=== PATIENT | female | born 1970 | race Asian ===

== ENCOUNTER 2016-11-22 12:26 | Outpatient (CLI) | payer BC ==
--- NOTE | 2016-11-22 13:42 | Diagnostic Imaging Report ---
Indication: COUGH Technique: Two views of the chest Comparison: none Findings: There is a valve prosthesis. Lungs and pleural spaces are clear. The heart size is normal Impression: Negative
== END 2016-11-22 14:26 | disposition home or self-care (01) ==
LOC: RAD 12:26
DX: R05 Cough (principal); R06.02 Shortness of breath
CPT/HCPCS: 71020

== ENCOUNTER 2018-09-04 10:36 | Inpatient (IN) | payer BC ==
[~2018-09-04] VITALS: Ht 167.6 cm; Wt 80.3 kg
[2018-09-04 15:35] VITALS: BP 131/83
--- NOTE | 2018-09-04 15:50 | NUR ---
NURSE NOTES: Patient admitted as direct admit under Dr. Kenney. Patient is alert and oriented x4, no acute distress noted. Patient is reporting no pain at this time. VS assessed and stable. Patient does report some vaginal bleeding, reports she was on per menstrual cycle and is also on lovenox. Per patient, she is being admitted for heparin drip as bridge therapy for a scheduled surgery this Sunday. Per patient, she is scheduled to have a hysteroscopy this Sunday under Dr. Almonte. Oriented patient to room. Belongings listed inventoried. Side rails upx2, bed low and locked, call light in reach. Will continue to monitor.
[2018-09-04] MEDS ORDERED: ASPIRIN-LOW81 MG ORAL (16:06)
[2018-09-04] MEDS ORDERED: COUMADIN4 MG ORAL (16:06)
[2018-09-04] MEDS ORDERED: LOVENOX10 M2 SUBQ (16:06)
[2018-09-04] MEDS ORDERED: CRESTOR10 M2 ORAL (16:06)
[2018-09-04] MEDS ORDERED: METOPROLOL TART25 MG ORAL (16:06)
--- NOTE | 2018-09-04 17:28 | NUR ---
NURSE NOTES: Received admission orders from Dr. Kenney. Orders entered. Patient is to be on heparin drip, informed that patient must be in tele for heparin drip for indication: bridge therapy. Awaiting clarification on heparin drip prior to entering order. Informed Nirali in pharmacy.
--- NOTE | 2018-09-04 17:55 | NUR ---
NURSE NOTES: Received clarification on heparin drip order from Dr. Kenney. Order entered. Nirali in pharmacy notified. Informed Nirali in pharmacy that patient gave herself her lovenox injection at 0900 this morning.
--- NOTE | 2018-09-04 18:22 | NUR ---
NURSE NOTES: Started 20g RAC IV. Satya STAT labs. Called lab and requested to come parts picker tubes.
--- NOTE | 2018-09-04 18:30 | NUR ---
NURSE NOTES: Lab tubes picked up by tech and transported to lab.
[2018-09-04 18:31] LABS: EOSINOPHILS % (AUTO) 2.9 % (0.0-3.0); HEMATOCRIT 37.8 % (37.0-47.0); HEMOGLOBIN 12.5 G/DL (12.0-16.0); LYMPHOCYTES % (AUTO) 26.8 % (20.0-45.0); MEAN CORPUSCULAR VOLUME 95 FL (80-99); MONOCYTES % (AUTO) 7.3 % (1.0-10.0); NEUTROPHILS % (AUTO) 61.1 % (45.0-75.0); PLATELET COUNT 232 K/UL (150-450); RED BLOOD COUNT 3.99 M/UL (4.20-5.40); RED CELL DISTRIBUTION WIDTH 12.1 % (11.6-14.8)
--- NOTE | 2018-09-04 18:45 | NUR ---
NURSE NOTES: Received report from ANG Monterroso. Patient alert and oriented x4. IV intact. Patient does not display any signs of distress or SOB. Patient oriented to the room and the use of the call light. Bed in the lowest position and call light within reach.
--- NOTE | 2018-09-04 19:00 | NUR ---
HAND-OFF: Report given to Nat FRY. Patient transferred to telemetry room 204.
--- NOTE | 2018-09-04 19:27 | NUR ---
HAND-OFF: Report given to ANG Hastings.
--- NOTE | 2018-09-04 19:32 | NUR ---
CASE MANAGEMENT: REVIEW 48Y/F PRESENTED TO ED FROM HOME CC: UTERINE BLEEDING SI: UTERINE BLEEDING T 97.9 HR 64 RR 21 BP 131/83 SAT 99% ROOM AIR H/H 12.5/37.8 APTT 40 IS: HEPARIN IV X1 PATIENT ADMITTED TO TELEMETRY UNIT 09/04/2018 DCP: PATIENT IS FROM HOME
--- NOTE | 2018-09-04 19:45 | NUR ---
NURSE NOTES: Received patient from ANG Johns, stable condition, no acute distress, lying comfortably in bed. AOx4, able to make needs known. Denies pain at this time. Ambulatory, steady gait. Will continue to monitor and reassess.
[2018-09-04 20:00] VITALS: BP 114/64
[2018-09-04] MEDS ORDERED: Metoprolol Tartrate 12.5mg TAB ORAL SCH (21:00)
[2018-09-04] MEDS ORDERED: Heparin 25,000u/D5W 500ml 500 ML IV SCH ×2 (21:00)
[2018-09-04] MEDS ORDERED: Heparin 5000 units/ml inj IV SCH ×2 (21:00)
[2018-09-04] MEDS ORDERED: Atorvastatin 20mg tab ORAL SCH (21:00)
[2018-09-04] MEDS: Atorvastatin 20mg tab ORAL SCH (21:04)
[2018-09-04] MEDS: Metoprolol Tartrate 12.5mg TAB ORAL SCH (21:04)
[2018-09-05] VITALS: BP 105/56
[2018-09-05 03:39] LABS: ANION GAP 8 mmol/L (5-15); BLOOD UREA NITROGEN 19 mg/dL (7-18); CALCIUM 8.2 MG/DL (8.5-10.1); CARBON DIOXIDE 26 MMOL/L (21-32); CHLORIDE 110 MMOL/L (98-107); CREATININE 0.8 MG/DL (0.55-1.30); POTASSIUM 3.5 MMOL/L (3.5-5.1); SODIUM 143 MMOL/L (136-145)
[2018-09-05 03:41] LABS: BASOPHILS % (AUTO) 1.9 % (0.0-2.0); EOSINOPHILS % (AUTO) 4.2 % (0.0-3.0); HEMATOCRIT 35.8 % (37.0-47.0); LYMPHOCYTES % (AUTO) 33.9 % (20.0-45.0); MEAN CORPUSCULAR VOLUME 91 FL (80-99); MONOCYTES % (AUTO) 9.3 % (1.0-10.0); NEUTROPHILS % (AUTO) 50.7 % (45.0-75.0); PLATELET COUNT 198 K/UL (150-450); RED BLOOD COUNT 3.93 M/UL (4.20-5.40); RED CELL DISTRIBUTION WIDTH 12.3 % (11.6-14.8); WHITE BLOOD COUNT 4.9 K/UL (4.8-10.8)
[2018-09-05 04:00] VITALS: BP 104/61
[2018-09-05 04:00] LABS: INR 1.2 (0.9-1.1)
[2018-09-05 04:10] LABS: PARTIAL THROMBOPLASTIN TIME > 150 SEC (23-33)
--- NOTE | 2018-09-05 04:15 | History and Physical Report ---
DATE OF ADMISSION: 09/04/2018 REASON FOR ADMISSION: Uterine bleeding. HISTORY: This is a 48-year-old female who has had significant amount of uterine bleeding in the past requiring transfusions. The patient was directed to come in earlier due to need for the intervention by AUXILIARY ENGINEER. The patient had stopped her Coumadin due to concern of the issue with mitral valve replacement. The patient is admitted for heparin drip. The patient is otherwise comfortable without distress. PAST MEDICAL HISTORY: Notable for hyperglycemia, hypercholesterolemia, mitral valve replacement, and history of atrial fibrillation. MEDICATIONS: Reviewed. ALLERGIES: Reviewed. SOCIAL HISTORY: Nonsmoker and nondrinker. The patient is independent. PHYSICAL EXAMINATION: GENERAL: A well-developed female, otherwise comfortable. VITAL SIGNS: Stable. The patient is afebrile. Blood pressure 131/83, heart rate 64, respirations 21, and temperature 97.9. HEENT: Negative. NECK: Supple. No adenopathy. LUNGS: Clear and symmetric. CARDIAC: S1, S2. Regular rate and rhythm. ABDOMEN: Soft and nontender. EXTREMITIES: No edema. NEUROLOGIC: Grossly nonfocal. LABORATORY DATA: Reviewed. IMPRESSION: 1. Atrial fibrillation. 2. Mitral valve replacement. 3. Uterine bleeding. 4. Anemia. 5. History of transfusion. 6. Hypercholesterolemia. 7. Hyperglycemia. 8. Hold Coumadin and Lovenox and aspirin. 9. Start the patient on heparin drip to avoid any issues with mitral valve. 10. AUXILIARY ENGINEER to follow and recommend further. 11. Monitor levels and have pharmacy to dose the heparin and we will follow clinically and assist with postoperative care. Andrés Kenney M.D. DR: VANESSA JOB#: [id number] CC: DORA
[2018-09-05] MEDS ORDERED: Heparin 25,000u/D5W 500ml 500 ML IV SCH ×3 (05:15→19:15)
--- NOTE | 2018-09-05 07:23 | NUR ---
HAND-OFF: Report given to Sonya FRY, patient is awake lying semi-davis's, resting comfortably.Heparin drip @14units/kg/hr.In stable condition.
--- NOTE | 2018-09-05 07:45 | NUR ---
NURSE NOTES: Nurse report given by ANG Hastings. Patient's awake. She's comfortable, and in stable condition, no sign of distress or SOB. Denies pain. Breakfast at bedside. Bed at lowest position, break engaged, call light within reach. Heparin drips running at 14 units/kg/hr.
--- NOTE | 2018-09-05 07:52 | General Progress Note ---
Assessment/Plan Assessment/Plan: IMPRESSION: 1. Atrial fibrillation. 2. Mitral valve replacement. 3. Uterine bleeding. 4. Anemia. 5. History of transfusion. 6. Hypercholesterolemia. 7. Hyperglycemia. PLAN GROUND HAND informed hold heparin 6 hours prior to procedure otherwise same impression, plan, and exam edited and reviewed in detail care discussed with RN Subjective Allergies: Coded Allergies: VANCOMYCIN (Verified Allergy, Unknown, 09/04/18) Subjective care noted and reviewed Objective Last 24 Hour Vital Signs Date Time Temp Pulse Resp B/P (MAP) Pulse Ox O2 Delivery O2 Flow Rate FiO2 09/05/18 04:00 56 09/05/18 04:00 98.3 59 18 104/61 (75) 96 09/05/18 00:00 61 09/05/18 00:00 98.3 63 18 105/56 (72) 96 09/04/18 21:04 65 114/64 09/04/18 21:00 Room Air 09/04/18 20:00 66 09/04/18 20:00 98.3 65 18 114/64 (81) 96 09/04/18 15:43 Room Air 09/04/18 15:35 97.9 64 21 131/83 (99) 99 Intake and Output 09/04/18 09/05/18 18:59 06:59 Intake Total 300 ml 446.194 ml Balance 300 ml 446.194 ml Intake Oral 300 ml 240 ml IV Total 206.194 ml # Voids 1 3 # Bowel Movements 1 Laboratory Tests 09/04/18 18:15: White Blood Count 5.0, Red Blood Count 3.99L, Hemoglobin 12.5, Hematocrit 37.8, Mean Corpuscular Volume 95, Mean Corpuscular Hemoglobin 31.3H, Mean Corpuscular Hemoglobin Concent 33.1, Red Cell Distribution Width 12.1, Platelet Count 232, Mean Platelet Volume 7.9, Neutrophils (%) (Auto) 61.1, Lymphocytes (%) (Auto) 26.8, Monocytes (%) (Auto) 7.3, Eosinophils (%) (Auto) 2.9, Basophils (%) (Auto ) 2.0, Activated Partial Thromboplast Time 40H 09/05/18 03:21: White Blood Count 4.9, Red Blood Count 3.93L, Hemoglobin 12.0, Hematocrit 35.8L , Mean Corpuscular Volume 91, Mean Corpuscular Hemoglobin 30.4, Mean Corpuscular Hemoglobin Concent 33.4, Red Cell Distribution Width 12.3, Platelet Count 198, Mean Platelet Volume 7.1, Neutrophils (%) (Auto) 50.7, Lymphocytes (% ) (Auto) 33.9, Monocytes (%) (Auto) 9.3, Eosinophils (%) (Auto) 4.2H, Basophils (%) (Auto) 1.9, Activated Partial Thromboplast Time > 150*H, Prothrombin Time 12.7H, Prothromb Time International Ratio 1.2H, Sodium Level 143, Potassium Level 3.5, Chloride Level 110H, Carbon Dioxide Level 26, Anion Gap 8, Blood Urea Nitrogen 19H, Creatinine 0.8, Estimat Glomerular Filtration Rate > 60, Glucose Level 116H, Calcium Level 8.2L Height (Feet): 5 Height (Inches): 7.00 Weight (Pounds): 170 Objective GENERAL: A well-developed female, otherwise comfortable. HEENT: Negative. NECK: Supple. No adenopathy. LUNGS: Clear and symmetric. CARDIAC: S1, S2. Regular rate and rhythm. ABDOMEN: Soft and nontender. EXTREMITIES: No edema. NEUROLOGIC: Grossly nonfocal. Andrés Kenney MD Sep 05, 2018 07:52
[2018-09-05 07:59] VITALS: BP 121/77
[2018-09-05] MEDS: Metoprolol Tartrate 12.5mg TAB ORAL SCH ×2 (08:33→22:44)
--- NOTE | 2018-09-05 09:52 | NUR ---
CASE MANAGEMENT: REVIEW 09/05/2018 SI: UTERINE BLEEDING T 98.3 HR 56 RR 18 B/P 104/61 SATS 96% ON RA CL 110 BUN 19 GLU 116 CA 8.2 IS: LOPRESSOR PO Q12H LIPITOR PO QHS HEPARIN DRIP PER PARAMETER TELE STATUS DCP: PATIENT IS FROM HOME PLAN OF CARE: RISK PROFESSIONAL CONSULT Addendum: 09/05/18 at 1552 by Kirstie Holley CM INTERQUAL MET
--- NOTE | 2018-09-05 10:09 | NUR ---
*-* INSURANCE *-* ALL CLINICALS AND REVIEWS HAVE BEEN FAXED TO: [facility] REF# [id number] F:[phone]
[2018-09-05 12:00] VITALS: BP 115/68
--- NOTE | 2018-09-05 14:00 | NUR ---
NURSE NOTES: Called Dr. Almonte's office and spoke with nurse. Nurse said surgery tomorrow is hysteroscopy with d and c and polypectomy. Witnessed patient signed consent after verifying Dr. Almonte spoke with her about the risks and benefits of the procedures. Will let Dr. Almonte put in order for the consent in the computer
--- NOTE | 2018-09-05 15:22 | Anethesia Preoperative Eval ---
Anesthesia Pre-op PMH/ROS General Date of Evaluation: Sep 05, 2018 Time of Evaluation: 15:18 Anesthesiologist: Ranjit ASA Score: ASA 2 Mallampati Score Class I : Soft palate, uvula, fauces, pillars visible Class II: Soft palate, uvula, fauces visible Class III: Soft palate, base of uvula visible Class IV: Only hard plate visible Mallampati Classification: Class II Surgeon: Davida Diagnosis: Uterine polip Surgical Procedure: D&C Hysteroscopy Anesthesia History: none Family History: no anesthesia problems Allergies: Coded Allergies: VANCOMYCIN (Verified Allergy, Unknown, 09/04/18) Medications: see eMAR Patient NPO?: Yes Past Medical History Cardiovascular: Reports: HTN - mild Pulmonary: Denies: asthma, COPD, JENA, other Gastrointestinal/Genitourinary: Reports: GERD; Denies: CRI, ESRD, other Neurologic/Psychiatric: Denies: dementia, CVA, depression/anxiety, TIA, other Endocrine: Denies: DM, hypothyroidism, steroids, other HEENT: Denies: cataract (L), cataract (R), glaucoma, [place] (L), [place] (R), other Hematology/Immune: Reports: anemia - mild; Denies: DVT, bleeding disorder, other Musculoskeletal/Integumentary: Denies: OA, RA, DJD, DDD, edema, other PMH Narrative: as above PSxH Narrative: Mitral valve replacement, L elbow ORIF, Oophorectomy Anesthesia Pre-op Phys. Exam Physician Exam Last Vital Signs Date Time Temp Pulse Resp B/P (MAP) Pulse Ox O2 Delivery O2 Flow Rate FiO2 09/05/18 12:00 98.6 63 20 115/68 (84) 97 09/05/18 09:00 Room Air Constitutional: NAD Neurologic: CN 2-12 intact Cardiovascular: RRR, no M/R/G Respiratory: CTA Gastrointestinal: S/NT/ND Airway Exam Mallampati Score: Class II MO: full Neck: flexible ROM: full Teeth: intact Dentures: no upper, no lower Anesthesia Pre-op A/P Labs Hematology Test 09/04/18 18:15 09/05/18 03:21 White Blood Count 5.0 K/UL (4.8-10.8) 4.9 K/UL (4.8-10.8) Red Blood Count 3.99 M/UL (4.20-5.40) L 3.93 M/UL (4.20-5.40) L Hemoglobin 12.5 G/DL (12.0-16.0) 12.0 G/DL (12.0-16.0) Hematocrit 37.8 % (37.0-47.0) 35.8 % (37.0-47.0) L Mean Corpuscular Volume 95 FL (80-99) 91 FL (80-99) Mean Corpuscular Hemoglobin 31.3 PG (27.0-31.0) H 30.4 PG (27.0-31.0) Mean Corpuscular Hemoglobin Concent 33.1 G/DL (32.0-36.0) 33.4 G/DL (32.0-36.0) Red Cell Distribution Width 12.1 % (11.6-14.8) 12.3 % (11.6-14.8) Platelet Count 232 K/UL (150-450) 198 K/UL (150-450) Mean Platelet Volume 7.9 FL (6.5-10.1) 7.1 FL (6.5-10.1) Neutrophils (%) (Auto) 61.1 % (45.0-75.0) 50.7 % (45.0-75.0) Lymphocytes (%) (Auto) 26.8 % (20.0-45.0) 33.9 % (20.0-45.0) Monocytes (%) (Auto) 7.3 % (1.0-10.0) 9.3 % (1.0-10.0) Eosinophils (%) (Auto) 2.9 % (0.0-3.0) 4.2 % (0.0-3.0) H Basophils (%) (Auto) 2.0 % (0.0-2.0) 1.9 % (0.0-2.0) Coagulation Test 09/04/18 18:15 09/05/18 03:21 09/05/18 11:30 Activated Partial Thromboplast Time 40 SEC (23-33) H > 150 SEC (23-33) *H 100 SEC (23-33) H Prothrombin Time 12.7 SEC (9.30-11.50) H Prothromb Time International Ratio 1.2 (0.9-1.1) H Chemistry Test 09/05/18 03:21 Sodium Level 143 MMOL/L (136-145) Potassium Level 3.5 MMOL/L (3.5-5.1) Chloride Level 110 MMOL/L (98-107) H Carbon Dioxide Level 26 MMOL/L (21-32) Anion Gap 8 mmol/L (5-15) Blood Urea Nitrogen 19 mg/dL (7-18) H Creatinine 0.8 MG/DL (0.55-1.30) Estimat Glomerular Filtration Rate > 60 mL/min (>60) Glucose Level 116 MG/DL (74-106) H Calcium Level 8.2 MG/DL (8.5-10.1) L Risk Assessment & Plan Assessment: ASA 2 Plan: GA with LMA Status Change Before Surgery: No Pre-Antibiotics Drug: as scheduled Toby Church MD Sep 05, 2018 15:22
[2018-09-05 16:00] VITALS: BP 115/71
[2018-09-05] MEDS ORDERED: Heparin 5000 units/ml inj IV SCH (19:15)
--- NOTE | 2018-09-05 19:19 | NUR ---
HAND-OFF: Report given to Darling FRY. Patient's in stable condition. Plan of care endorsed.
--- NOTE | 2018-09-05 19:30 | NUR ---
NURSE NOTES: Received report from Sonya FRY, patient in stable condition, on hep drip 12u/kg/hr. Lying in bed comfortably, Right AC G20 flushed patent no s/sx of infiltration, extravasation, phlebitis. Ambulatory, denies pain at this time
[2018-09-05 20:00] VITALS: BP 116/63
[2018-09-05] MEDS: Atorvastatin 20mg tab ORAL SCH (20:50)
--- NOTE | 2018-09-05 21:49 | NUR ---
NURSE NOTES: Called Dr. Kenney regarding possible parameters for patient's Metoprolol medication since her heart rate went down to the 40s yesterday night after administration of 12.5 mg Metoprolol PO medication. Awaiting callback.
--- NOTE | 2018-09-05 22:36 | NUR ---
NURSE NOTES: Received order from Dr. Kenney to hold 2100 12.5 mg Lopressor PO dose for tonight. Noted and carried out.
[2018-09-06] VITALS (14 sets, daily range): BP systolic 108–123; BP diastolic 58–73
--- NOTE | 2018-09-06 | NUR ---
NURSE NOTES: Heparin drip held at this time in preparation for procedure in AM, 09/06/18.
--- NOTE | 2018-09-06 05:30 | NUR ---
NURSE NOTES: Called Dr. Almonte regarding consent order for patient. Awaiting callback.
--- NOTE | 2018-09-06 05:37 | NUR ---
NURSE NOTES: Received order from Dr. Almonte. Noted and carried out.
[2018-09-06 06:11] LABS: BASOPHILS % (AUTO) 2.7 % (0.0-2.0); EOSINOPHILS % (AUTO) 3.6 % (0.0-3.0); HEMATOCRIT 37.8 % (37.0-47.0); HEMOGLOBIN 12.5 G/DL (12.0-16.0); LYMPHOCYTES % (AUTO) 29.4 % (20.0-45.0); MEAN CORPUSCULAR VOLUME 92 FL (80-99); NEUTROPHILS % (AUTO) 56.2 % (45.0-75.0); PLATELET COUNT 209 K/UL (150-450); RED BLOOD COUNT 4.12 M/UL (4.20-5.40); RED CELL DISTRIBUTION WIDTH 12.3 % (11.6-14.8); WHITE BLOOD COUNT 5.1 K/UL (4.8-10.8)
[2018-09-06 06:34] LABS: ALANINE AMINOTRANSFERASE 55 U/L (12-78); ALBUMIN 3.4 G/DL (3.4-5.0); ALBUMIN/GLOBULIN RATIO 1.2 (1.0-2.7); ALKALINE PHOSPHATASE 35 U/L (46-116); ANION GAP 10 mmol/L (5-15); ASPARTATE AMINO TRANSFERASE 42 U/L (15-37); BILIRUBIN,TOTAL 1.3 MG/DL (0.2-1.0); BLOOD UREA NITROGEN 13 mg/dL (7-18); CALCIUM 8.5 MG/DL (8.5-10.1); CARBON DIOXIDE 24 MMOL/L (21-32); CHLORIDE 110 MMOL/L (98-107); CREATININE 0.8 MG/DL (0.55-1.30); POTASSIUM 3.9 MMOL/L (3.5-5.1); SODIUM 144 MMOL/L (136-145)
[2018-09-06 06:45] LABS: BILIRUBIN,DIRECT 0.2 MG/DL (0.0-0.3)
--- NOTE | 2018-09-06 07:02 | NUR ---
NURSE NOTES: Patient is taken off the unit for surgery.
[2018-09-06] MEDS ORDERED: fentaNYL 100 mcg/2 mL IV ONE (07:09)
[2018-09-06] MEDS ORDERED: Succinylcholine 20mg/ml 10ml vial ONE (07:09)
[2018-09-06] MEDS ORDERED: Midazolam 2mg/2ml Inj ONE (07:09)
[2018-09-06] MEDS ORDERED: Propofol 200mg/20ml IV ONE (07:09)
[2018-09-06] MEDS ORDERED: Sterile Water Irrig 1000ml IRRIG ONE (07:30)
[2018-09-06] MEDS ORDERED: Lidocaine 1% MPF 10mg/ml 5ml ONE (07:30)
[2018-09-06] MEDS ORDERED: LR 1000ml ONE ×2 (07:30→11:00)
[2018-09-06] MEDS ORDERED: NS Irrig 1000ml ONE (07:30)
[2018-09-06] MEDS ORDERED: Metoclopramide 10mg/2ml Inj ONE (07:30)
--- NOTE | 2018-09-06 07:50 | Pre-Procedure Note/Attestation ---
Pre-Procedure Note/Attestation Complete Prior to Procedure Planned Procedure: not applicable Procedure Narrative: Hysteroscopy, polypectomy, dilation and curettage Indications for Procedure Pre-Operative Diagnosis: Abnormal uterine bleeding with polyp noted on ultrasound Attestation I attest that I discussed the nature of the procedure; its benefits; risks and complications; and alternatives (and the risks and benefits of such alternatives ), prior to the procedure, with the patient (or the patient's legal risk control representative). I attest that, if there was a reasonable possibility of needing a blood transfusion, the patient (or the patient's legal risk control representative) was given the [facility] standardized written summary, pursuant to the [place] Blood Safety Act ([place] Health and Safety Code # 1645, as amended). I attest that I re-evaluated the patient just prior to the surgery and that there has been no change in the patient's H&P, except as documented below: None Elvira Almonte M.D. Sep 06, 2018 07:50
--- NOTE | 2018-09-06 07:53 | NUR ---
HAND-OFF: Report given to ANG Chino. Patient is currently off the unit.
--- NOTE | 2018-09-06 07:54 | NUR ---
NURSE NOTES: Received report from Darling FRY. Patient is currently off the floor. Will continue plan of care when patient come back after surgery.
[2018-09-06] MEDS ORDERED: Hydromorphone 0.5mg/0.5ml inj IVP PRN (08:15)
[2018-09-06] MEDS ORDERED: Silver Nitrate Stick TOPIC ONE ×3 (08:17→08:21)
--- NOTE | 2018-09-06 08:18 | Anethesia Preoperative Eval ---
Anesthesia Pre-op PMH/ROS General Date of Evaluation: Sep 06, 2018 Time of Evaluation: 07:15 Anesthesiologist: Kristy Sheriff CRNA ASA Score: ASA 3 Mallampati Score Class I : Soft palate, uvula, fauces, pillars visible Class II: Soft palate, uvula, fauces visible Class III: Soft palate, base of uvula visible Class IV: Only hard plate visible Mallampati Classification: Class II Surgeon: Gage Diagnosis: Uterine bleeding Surgical Procedure: Hysteroscopy, D & C. piolypectomy Anesthesia History: none Family History: no anesthesia problems Allergies: Coded Allergies: VANCOMYCIN (Verified Allergy, Unknown, 09/04/18) Medications: see eMAR Patient NPO?: Yes NPO Date: Sep 06, 2018 NPO Time: 0000 Past Medical History Cardiovascular: Reports: HTN, valve dz - s/p mitral valve replacement 3 years ago, other - hypercholesterlemia; Denies: CAD, [place], arrhythmia Pulmonary: Denies: asthma, COPD, JENA, other Gastrointestinal/Genitourinary: Reports: other - uterine bleeding; Denies: GERD, CRI, ESRD Neurologic/Psychiatric: Denies: dementia, CVA, depression/anxiety, TIA, other Endocrine: Denies: DM, hypothyroidism, steroids, other Hematology/Immune: Reports: anemia, other - anticoaglation therapy for mitral valve Musculoskeletal/Integumentary: Reports: OA, other - sciatica, RIGHT knee umbness, tingling, pain PMH Narrative: as noted above PSxH Narrative: LEFT elbow, mitral valve replacement Anesthesia Pre-op Phys. Exam Physician Exam Last Vital Signs Date Time Temp Pulse Resp B/P (MAP) Pulse Ox O2 Delivery O2 Flow Rate FiO2 09/06/18 04:00 51 09/06/18 04:00 98.1 20 121/66 (84) 98 09/05/18 21:00 Room Air Constitutional: NAD, other - bruising Neurologic: other - alert and oriented Cardiovascular: RRR Respiratory: CTA Gastrointestinal: S/NT/ND Airway Exam Mallampati Score: Class II MO: full Neck: FROM TMD: > 3 FB ROM: full Teeth: intact Dentures: no upper, no lower Anesthesia Pre-op A/P Labs Hematology Test 09/06/18 05:50 White Blood Count 5.1 K/UL (4.8-10.8) Red Blood Count 4.12 M/UL (4.20-5.40) L Hemoglobin 12.5 G/DL (12.0-16.0) Hematocrit 37.8 % (37.0-47.0) Mean Corpuscular Volume 92 FL (80-99) Mean Corpuscular Hemoglobin 30.5 PG (27.0-31.0) Mean Corpuscular Hemoglobin Concent 33.1 G/DL (32.0-36.0) Red Cell Distribution Width 12.3 % (11.6-14.8) Platelet Count 209 K/UL (150-450) Mean Platelet Volume 7.6 FL (6.5-10.1) Neutrophils (%) (Auto) 56.2 % (45.0-75.0) Lymphocytes (%) (Auto) 29.4 % (20.0-45.0) Monocytes (%) (Auto) 8.0 % (1.0-10.0) Eosinophils (%) (Auto) 3.6 % (0.0-3.0) H Basophils (%) (Auto) 2.7 % (0.0-2.0) H Coagulation Test 09/05/18 11:30 09/05/18 18:05 09/06/18 05:50 Activated Partial Thromboplast Time 100 SEC (23-33) H 61 SEC (23-33) H 28 SEC (23-33) Chemistry Test 09/06/18 05:50 Sodium Level 144 MMOL/L (136-145) Potassium Level 3.9 MMOL/L (3.5-5.1) Chloride Level 110 MMOL/L (98-107) H Carbon Dioxide Level 24 MMOL/L (21-32) Anion Gap 10 mmol/L (5-15) Blood Urea Nitrogen 13 mg/dL (7-18) Creatinine 0.8 MG/DL (0.55-1.30) Estimat Glomerular Filtration Rate > 60 mL/min (>60) Glucose Level 98 MG/DL (74-106) Calcium Level 8.5 MG/DL (8.5-10.1) Total Bilirubin 1.3 MG/DL (0.2-1.0) H Direct Bilirubin 0.2 MG/DL (0.0-0.3) Aspartate Amino Transf (AST/SGOT) 42 U/L (15-37) H Alanine Aminotransferase (ALT/SGPT) 55 U/L (12-78) Alkaline Phosphatase 35 U/L (46-116) L Total Protein 6.3 G/DL (6.4-8.2) L Albumin 3.4 G/DL (3.4-5.0) Globulin 2.9 g/dL Albumin/Globulin Ratio 1.2 (1.0-2.7) Urine Test negative 08/29/18 Studies Pre-op Studies: EKG - NSR, CXR - NAD, valve present, echo - EF 60-65%; pulmonic insufficiency Risk Assessment & Plan Assessment: ASA 3, ok to proceed Plan: GA with LMA Status Change Before Surgery: No Pre-Antibiotics Drug: cefazolin 2 gm IV Given Within 1 Hr of Incision: Yes Kristy Sheriff CRNA Sep 06, 2018 08:18
--- NOTE | 2018-09-06 08:42 | Immediate Post-Op Evaluation ---
Immediate Post-Op Evalulation Immediate Post-Op Evalulation Procedure: Hysteroscopy, D & C, polypectomy Date of Evaluation: Sep 06, 2018 Time of Evaluation: 08:41 IV Fluids: LR 500 ml Estimated Blood Loss: minimal Blood Pressure Systolic: 120 Blood Pressure Diastolic: 70 Pulse Rate: 75 Respiratory Rate: 12 O2 Sat by Pulse Oximetry: 99 Temperature (Fahrenheit): 96.5 Pain Score (1-10): 0 Nausea: No Vomiting: No Complications none Patient Status: awake, reacts, patent, extubated Hydration Status: adequate Drug: cefazolin 2 gm IV Given Within 1 Hr of Incision: Yes Time Given: 07:53 Kristy Sheriff CRNA Sep 06, 2018 08:42
[2018-09-06] MEDS: Metoprolol Tartrate 12.5mg TAB ORAL SCH ×2 (09:30→21:10)
--- NOTE | 2018-09-06 10:23 | NUR ---
NURSE NOTES: Per Dr. Kenney's order patient will start Heparin drip at 07:00 PM. RN spoke with pharmacy. RN will double check the rate with doctor before start the heparin Drip.
[2018-09-06] MEDS ORDERED: NS Irrig 4000ml IRRIG ONE (11:00)
--- NOTE | 2018-09-06 11:27 | NUR ---
CASE MANAGEMENT: REVIEW 09/05/2018 SI: UTERINE BLEEDING T 98 HR 56 RR 20 B/P 111/71 SATS 96% ON RA CL 110 TBILI 1.3 AST 42 ALP 35 IS: LOPRESSOR PO Q12H LIPITOR PO QHS HEPARIN DRIP PER PARAMETER TELE STATUS DCP: PATIENT IS FROM HOME PLAN OF CARE: Procedure Narrative: Hysteroscopy, polypectomy, dilation and curettage
--- NOTE | 2018-09-06 13:02 | Brief Operative Note ---
Immediate Post Operative Note Operative Note Chief Complaint: Heavy vaginal bleeding Pre-op Diagnosis: Abnormal uterine bleeding with polyp noted on ultrasound Procedure: Hysteroscopy, polypectomy, dilation and curettage Post-op Diagnosis: Endometrial polyps Surgeon: Elvira Almonte MD Anesthesiologist: Kristy Mcdonald CRNA Anesthesia: general Specimen: yes - Endometrial polyp, endometrial curetting Complications: none Condition: stable Fluids: Crystalloid Estimated Blood Loss: minimal Drains: none - Bladder drained prior to procedure Implant(s) used?: No Elvira Almonte M.D. Sep 06, 2018 13:02
--- NOTE | 2018-09-06 13:05 | Operative Note - PDOC ---
Operative Note Operative Note Date of Operation/Procedure: Sep 06, 2018 Chief Complaint: Heavy vaginal bleeding Pre-op Diagnosis: Abnormal uterine bleeding with polyp noted on ultrasound Procedure: Hysteroscopy, polypectomy, dilation and curettage Post-op Diagnosis: Endometrial polyps Post-op Diagnosis: same as pre-op Operative Findings: consistent w/pre-op dx studies Surgeon: Elvira Almonte MD Anesthesiologist: Kristy Mcdonald CRNA Anesthesia: general Specimen: yes - Endometrial polyp, endometrial curetting Complications: none Condition: stable Fluids: Crystalloid Estimated Blood Loss: minimal Drains: none - Bladder drained prior to procedure Implant(s) used?: No Indications for Procedure Heavy vaginal bleeding, patient on anticoagulation Description of Procedure The R/B/A of the procedure were discussed with the patient and informed consent was obtained. The patient was pre-admitted for heparin drip for pre-operative anticoagulation bridging in the setting of prosthetic mitral valve. Polyps noted on posterior wall of endometrium on the right and posteriorly in the lower uterine segment. Elvira Almonte M.D. Sep 06, 2018 13:05
--- NOTE | 2018-09-06 15:27 | NUR ---
*-* INSURANCE *-* ALL CLINICALS AND REVIEWS HAVE BEEN FAXED TO: [facility] REF# [id number] F:[phone]
[2018-09-06] MEDS ORDERED: Warfarin Sodium 5mg ORAL ONE (18:00)
[2018-09-06] MEDS ORDERED: Heparin 25,000u/D5W 500ml 500 ML IV SCH (19:00)
--- NOTE | 2018-09-06 19:31 | NUR ---
HAND-OFF: Report given to ANG Nash.
--- NOTE | 2018-09-06 19:32 | NUR ---
NURSE NOTES: Got report from Sybil FRY. Pt in stable condition. denies any pain. No s/s of distress or discomfort noted. Pt resting in bed comfortably. Bed in low and locked position, call light within reach, bedside table within reach. Continue to monitor.
--- NOTE | 2018-09-06 21:09 | Pulmonology Progress Note ---
Assessment/Plan Assessment/Plan Pulmonary Progress Note Assessment/Plan: IMPRESSION: 1. Atrial fibrillation. 2. Mitral valve replacement. 3. Uterine bleeding. 4. Anemia. 5. History of transfusion. 6. Hypercholesterolemia. 7. Hyperglycemia. PLAN Coumadin/Heparin per pharmacy otherwise same impression, plan, and exam edited and reviewed in detail care discussed with RN Subjective Allergies: Coded Allergies: VANCOMYCIN (Verified Allergy, Unknown, 09/04/18) Subjective care noted and reviewed Objective Vital Signs Noted Laboratory Tests 09/04/18 18:15: White Blood Count 5.0, Red Blood Count 3.99L, Hemoglobin 12.5, Hematocrit 37.8, Mean Corpuscular Volume 95, Mean Corpuscular Hemoglobin 31.3H, Mean Corpuscular Hemoglobin Concent 33.1, Red Cell Distribution Width 12.1, Platelet Count 232, Mean Platelet Volume 7.9, Neutrophils (%) (Auto) 61.1, Lymphocytes (%) (Auto) 26.8, Monocytes (%) (Auto) 7.3, Eosinophils (%) (Auto) 2.9, Basophils (%) (Auto ) 2.0, Activated Partial Thromboplast Time 40H 09/05/18 03:21: White Blood Count 4.9, Red Blood Count 3.93L, Hemoglobin 12.0, Hematocrit 35.8L , Mean Corpuscular Volume 91, Mean Corpuscular Hemoglobin 30.4, Mean Corpuscular Hemoglobin Concent 33.4, Red Cell Distribution Width 12.3, Platelet Count 198, Mean Platelet Volume 7.1, Neutrophils (%) (Auto) 50.7, Lymphocytes (% ) (Auto) 33.9, Monocytes (%) (Auto) 9.3, Eosinophils (%) (Auto) 4.2H, Basophils (%) (Auto) 1.9, Activated Partial Thromboplast Time > 150*H, Prothrombin Time 12.7H, Prothromb Time International Ratio 1.2H, Sodium Level 143, Potassium Level 3.5, Chloride Level 110H, Carbon Dioxide Level 26, Anion Gap 8, Blood Urea Nitrogen 19H, Creatinine 0.8, Estimat Glomerular Filtration Rate > 60, Glucose Level 116H, Calcium Level 8.2L Height (Feet): 5 Height (Inches): 7.00 Weight (Pounds): 170 Objective GENERAL: A well-developed female, otherwise comfortable. HEENT: Negative. NECK: Supple. No adenopathy. LUNGS: Clear and symmetric. CARDIAC: S1, S2. Regular rate and rhythm. ABDOMEN: Soft and nontender. EXTREMITIES: No edema. NEUROLOGIC: Grossly nonfocal. Subjective ROS Limited/Unobtainable: No Allergies: Coded Allergies: VANCOMYCIN (Verified Allergy, Unknown, 09/04/18) Objective Last 24 Hour Vital Signs Date Time Temp Pulse Resp B/P (MAP) Pulse Ox O2 Delivery O2 Flow Rate FiO2 09/06/18 16:00 67 09/06/18 16:00 97.9 63 20 108/58 (75) 98 09/06/18 12:00 53 09/06/18 11:58 97.8 54 20 115/73 (87) 97 09/06/18 10:00 55 09/06/18 09:37 63 15 119/62 96 Room Air 09/06/18 09:30 56 111/71 09/06/18 09:30 98.0 56 20 111/71 (84) 96 09/06/18 09:15 57 11 117/65 97 Room Air 09/06/18 09:01 64 12 113/61 98 Room Air 09/06/18 09:00 Room Air 09/06/18 08:45 58 10 111/61 100 Simple Mask 6 09/06/18 08:42 75 12 99 09/06/18 08:40 59 19 115/63 100 Simple Mask 6 09/06/18 08:35 64 11 118/68 100 Simple Mask 6 09/06/18 08:32 96.5 66 20 120/70 100 Simple Mask 6 09/06/18 04:00 51 09/06/18 04:00 98.1 55 20 121/66 (84) 98 09/06/18 00:00 98.0 59 20 123/67 (85) 97 09/06/18 00:00 53 09/05/18 22:44 63 116/63 Intake and Output 09/05/18 09/06/18 19:00 07:00 Intake Total 480.455 ml 81.326 ml Balance 480.455 ml 81.326 ml Intake Oral 280 ml IV Total 200.455 ml 81.326 ml # Voids 3 3 Laboratory Tests 09/06/18 05:50: White Blood Count 5.1, Red Blood Count 4.12L, Hemoglobin 12.5, Hematocrit 37.8, Mean Corpuscular Volume 92, Mean Corpuscular Hemoglobin 30.5, Mean Corpuscular Hemoglobin Concent 33.1, Red Cell Distribution Width 12.3, Platelet Count 209, Mean Platelet Volume 7.6, Neutrophils (%) (Auto) 56.2, Lymphocytes (%) (Auto) 29.4, Monocytes (%) (Auto) 8.0, Eosinophils (%) (Auto) 3.6H, Basophils (%) (Auto ) 2.7H, Activated Partial Thromboplast Time 28, Sodium Level 144, Potassium Level 3.9, Chloride Level 110H, Carbon Dioxide Level 24, Anion Gap 10, Blood Urea Nitrogen 13, Creatinine 0.8, Estimat Glomerular Filtration Rate > 60, Glucose Level 98, Calcium Level 8.5, Total Bilirubin 1.3H, Direct Bilirubin 0.2 , Aspartate Amino Transf (AST/SGOT) 42H, Alanine Aminotransferase (ALT/SGPT) 55 , Alkaline Phosphatase 35L, Total Protein 6.3L, Albumin 3.4, Globulin 2.9, Albumin/Globulin Ratio 1.2 Current Medications Medications (Trade) Dose Ordered Sig/Aida Route PRN Reason Start Time Stop Time Status Last Admin Dose Admin Acetaminophen (Tylenol) 650 mg Q4H PRN ORAL Mild Pain/Temp > 100.5 09/05/18 10:30 10/05/18 10:29 09/05/18 20:49 Atorvastatin Calcium (Lipitor) 20 mg BEDTIME ORAL 09/04/18 21:00 10/04/18 20:59 09/05/18 20:50 Heparin Sodium/ Dextrose 500 ml @ 22.48 mls/ hr ADJUST PER PROTOCOL IV 09/06/18 19:00 10/06/18 18:59 09/06/18 18:58 Metoprolol Tartrate (Lopressor) 12.5 mg EVERY 12 HOURS ORAL 09/04/18 21:00 10/04/18 20:59 09/05/18 08:33 Warfarin Sodium (Coumadin per pharmacy) 1 ea DAILY PRN MISC Per rx protocol 09/06/18 17:15 10/06/18 17:14 Jae Zamarripa MD Sep 06, 2018 21:09
[2018-09-06] MEDS: Atorvastatin 20mg tab ORAL SCH (21:10)
[2018-09-07] MEDS ORDERED: Heparin 5000 units/ml inj IV SCH (02:45)
[2018-09-07] MEDS: Heparin 25,000u/D5W 500ml 500 ML IV SCH ×2 (02:59→08:27)
[2018-09-07 03:41] VITALS: BP 108/66
[2018-09-07 06:20] LABS: BASOPHILS % (AUTO) 1.1 % (0.0-2.0); EOSINOPHILS % (AUTO) 2.8 % (0.0-3.0); HEMATOCRIT 37.7 % (37.0-47.0); HEMOGLOBIN 12.3 G/DL (12.0-16.0); LYMPHOCYTES % (AUTO) 16.6 % (20.0-45.0); MEAN CORPUSCULAR VOLUME 96 FL (80-99); MONOCYTES % (AUTO) 6.1 % (1.0-10.0); NEUTROPHILS % (AUTO) 73.4 % (45.0-75.0); PLATELET COUNT 215 K/UL (150-450); RED BLOOD COUNT 3.93 M/UL (4.20-5.40); RED CELL DISTRIBUTION WIDTH 12.4 % (11.6-14.8); WHITE BLOOD COUNT 7.2 K/UL (4.8-10.8)
[2018-09-07 06:28] LABS: ANION GAP 6 mmol/L (5-15); BLOOD UREA NITROGEN 12 mg/dL (7-18); CALCIUM 8.7 MG/DL (8.5-10.1); CARBON DIOXIDE 26 MMOL/L (21-32); CHLORIDE 106 MMOL/L (98-107); CREATININE 0.8 MG/DL (0.55-1.30); POTASSIUM 3.9 MMOL/L (3.5-5.1); SODIUM 138 MMOL/L (136-145)
--- NOTE | 2018-09-07 07:30 | NUR ---
HAND-OFF: Report given to Ambar FRY. Endorsed plan of care.
--- NOTE | 2018-09-07 07:55 | NUR ---
NURSE NOTES: Received report from ANG Nash. Pt is sitting in bed and expressed her desire to go home today. Pt is on heparin drip currently running at 18/units/kg (28.903ml/hr). Bed is in lowest position, side rails up X2, and call light is within reach. Will continue to monitor.
--- NOTE | 2018-09-07 08:23 | NUR ---
NURSE NOTES: Contacted Dr. Kenney regarding pt wanting to leave. Per Dr. Kenney ok to discharge and stop heparin Drip. Patient to continue lovenox and coumadin for 4 days and get coumadin level on 09/10/2018. Orders noted and carried out. Addendum: 09/07/18 at 1053 by Ambar Rush RN NURSE NOTES: Time for the above referenced note should be 09:23am
--- NOTE | 2018-09-07 08:30 | NUR ---
NURSE NOTES: Per Robbin in pharmacy, scan the label and click non scheduled administration for heparin. New label placed on bag
[2018-09-07] MEDS: Metoprolol Tartrate 12.5mg TAB ORAL SCH (09:00)
--- NOTE | 2018-09-07 09:25 | NUR ---
NURSE NOTES: Heparin drip stopped
--- NOTE | 2018-09-07 09:50 | 48 Hour Post Anesthesia Eval ---
Post Anesthesia Evaluation Procedure: Hysteroscopy, D & C, polypectomy Date of Evaluation: Sep 07, 2018 Time of Evaluation: 09:50 Nausea: No Vomiting: No Marysol Berry MD Sep 07, 2018 09:50
--- NOTE | 2018-09-07 10:21 | NUR ---
NURSE NOTES: Patient was discharged per MD orders. Heart monitor removed and returned to [place]. IV removed. No redness or swelling noted. Belongings accounted for. Medication picked up from the pharmacy and returned to the patient. Patient instructed to monitor for bleeding. Pt verbalized understanding. Pt states " I have had this condition for a long time so I know what to monitor for"
[2018-09-07] MEDS ORDERED: Heparin 25,000u/D5W 500ml 500 ML IV SCH (11:30)
[2018-09-07] MEDS ORDERED: Warfarin Sodium 5mg ORAL SCH (17:00)
--- NOTE | 2018-09-09 12:18 | Discharge Summary ---
Discharge Summary Discharge Summary _ DATE OF ADMISSION: 09/04/2018 DATE OF DISCHARGE: 09/07/2018 DISCHARGED BY: Dr. Kenney REASON FOR ADMISSION: 48 years old female with past medical history of hyperglycemia, hypercholesterolemia, mitral valve replacement, history of atrial fibrillation, uterine bleeding , presented for elective surgery. Patient apparently had in the past uterine bleeding requiring blood transfusion . Patient was on anticoagulation therapy with Coumadin due to mitral valve replacement, which was stopped due to impending surgery. Patient was admitted preoperatively for anticoagulation with heparin drip in the setting of prosthetic mitral valve. Laboratory work-up and vital signs were overall unremarkable. Hemoglobin 12.5, hematocrit 37.8 Patient admitted for abnormal uterine bleeding for elctive surgery due to need for anticoagulation. CONSULTANTS: HAND CHAIN MAKER: Dr. Almonte HOSPITAL COURSE: Patient admitted to telemetry floor. Patient was on heparin drip. Heparin drip was hold 6 hours prior to procedure. Patient subsequently undergone hysteroscopy, polypectomy , dilatation and curettage on 09/06. Hemoglobin and hematocrit were closely monitored with goal to keep hemoglobin above 7. During surgery noted polyp on posterior wall of endometrium on the right and posteriorly in the lower uterine segment. Follow up with biopsy results. Postoperatively , pain management was addressed , and pain was controlled. Hemoglobin and hematocrit were closely monitored with goal to keep hemoglobin above 7. Hemoglobin and hematocrit remained at the baseline : hemoglobin 12.3, hematocrit 37.7 prior to discharge. Glucose remained stable. Patient after surgery started on heparin drip and Coumadin to bridge to therapeutic level. INR remains subtherapeutic. Pain management was addressed, and pain was controlled. Bowel regimen instituted. Patient was able to tolerate to tolerate diet. Patient ambulated. Patient voided freely. Supportive care provided. Patient was cleared for discharge home on Lovenox and Coumadin for 4 days and check INR level on September 10. FINAL DIAGNOSES: Abnormal uterine bleeding Status post hysteroscopy , polypectomy, dilation and curettage 09/06 Endometrial polyps Atrial fibrillation History of mitral valve replacement Hypercholesterolemia Hyperglycemia DISCHARGE MEDICATIONS: See Medication Reconciliation list. DISCHARGE INSTRUCTIONS: Patient was discharged home. Patient to take both Lovenox and Coumadin . Check INR on September 10. I have been assigned to dictate discharge summary for this account. I was not involved in the patient's management. Geno Salvador NP Sep 09, 2018 12:18
== END 2018-09-07 10:23 | disposition home or self-care (01) | DRG 743 ==
LOC: 3E 15:16 → 2E 19:25
PROC: 0UB98ZZ Excision of Uterus, Via Natural or Artificial Opening Endoscopic (ICD-10-PCS; principal; 2018-09-06 07:30)
PROC: 0UDB8ZZ Extraction of Endometrium, Via Natural or Artificial Opening Endoscopic (ICD-10-PCS; principal; 2018-09-06 07:30)
DX: N84.0 Polyp of corpus uteri (principal); N93.8 Other specified abnormal uterine and vaginal bleeding; I48.91 Unspecified atrial fibrillation; R73.9 Hyperglycemia, unspecified; D64.9 Anemia, unspecified; E11.9 Type 2 diabetes mellitus without complications; E78.00 Pure hypercholesterolemia, unspecified; Z79.01 Long term (current) use of anticoagulants; Z95.2 Presence of prosthetic heart valve
CPT/HCPCS: 36415; 80048; 80053; 82248; 85025; 85610; 85730; 94003; 94150; J2250; J2405; J2765